=== PATIENT | male | born 1940 | race Caucasian/White ===

== ENCOUNTER 2020-03-28 10:46 | Outpatient (CLI) | payer MEDICARE, SELFPAY ==
--- NOTE | 2020-03-28 10:54 | XR_ITS ---
WS: [id number] PROCEDURE: XR chest 2V* [id number] CLINICAL INFORMATION: MALIGNANT NEOPLASM OF PHARYNX COMPARISON: June 08, 2019 FINDINGS: Heart: Normal cardiac silhouette. Lungs: Moderate chronic emphysematous changes. Volume loss right lung. Small right pleural effusion. Subsegmental atelectasis right lung base. Left lung is well aerated. No new infiltrates. Bones: Chronic right rib fractures with callus formation. Chronic compression L1 vertebral body. XR/XR chest 2V* [id number] IMPRESSION: 1. Moderate chronic emphysematous changes. 2. Volume loss right lung with small right pleural effusion. Subsegmental atel ectasis right lung base. 3. No new infiltrates.
== END 2020-03-28 10:47 | disposition home or self-care (01) ==
LOC: RADWPI 10:52
PROVIDERS: Family Provider Family Medicine; PCP Family Medicine; Visit Provider Nurse Practitioner Family
DX: C14.0 Malignant neoplasm of pharynx, unspecified (principal); J90 Pleural effusion, not elsewhere classified; J98.11 Atelectasis
CPT/HCPCS: 71046

== ENCOUNTER 2020-05-02 12:42 | Outpatient (CLI) | payer MEDICARE, SELFPAY ==
--- NOTE | 2020-05-02 13:00 | CT_ITS ---
WS: [id number] CT CHEST WITH INTRAVENOUS CONTRAST HISTORY: INTERSTITIAL PULMONARY DISEASE TECHNIQUE: Contiguous 5 mm axial imaging performed on the thorax. Coronal and sagittal reformats are submitted. All CT scans at [facility] use at least one of these dose optimization techniq ues: automated exposure control; mA and/or kV adjustment per patient size (includes targeted exams wh ere dose is matched to clinical indication); or iterative reconstruction. CONTRAST: Visipaque 320; 95 mL IV. DLP: 797.6 mGycm COMPARISON: 09/07/2015 and 02/23/2011 Lungs and central airway: Mild volume loss in the RIGHT thorax. Previously described areas of atelect asis have significantly improved. There is a small groundglass nodule in the superior RIGHT lower lob e measuring 10 mm. There is an additional groundglass nodule measuring 8 mm in the superior LEFT lowe r lobe. Mild pleural thickening involving the fissures on the RIGHT and some subsegmental areas of at electasis and scar. Peripheral interstitial thickening at the RIGHT lung base. No suspicious nodule o r pneumonia. Pleura: Normal. No pleural effusion. Heart and pericardium: Normal size heart. No pericardial effusion. Mediastinum and tyler: Calcified subcarinal lymph nodes. No adenopathy. Vessels: Moderate atherosclerosis of the aorta. Very mild narrowing of the proximal LEFT subclavian a rtery. Scattered coronary artery calcifications. Chest wall and lower neck: No soft tissue masses. Upper abdomen: Atherosclerosis continues into the suprarenal aorta. Scattered granulomata in the sple en. No adrenal mass. Prior cholecystectomy. Osseous structures: Severe, remote vertebral plana fracture of L1. Deformity of the RIGHT thorax due to prior healed rib fractures. CT/CT chest w con* [id number] IMPRESSION: 1. Much improved aeration throughout both lungs as compared to 09/07/2015. 2. Mild pleural thickening and scarring in the RIGHT lung. 3. Mild changes of early honeycombing at the RIGHT lung base. 4. Bilateral areas of groundglass attenuation. These are within the lower lobe s bilaterally. Recommend follow-up chest CT in one year. 5. Atherosclerosis aorta. 6. Prior cholecystectomy.
[2020-05-02] MEDS: iodixanol 320 mg/mL 100mL Btl IV (13:48)
== END 2020-05-02 12:43 | disposition home or self-care (01) ==
LOC: RADWPI 12:46
PROVIDERS: Family Provider Family Medicine; PCP Family Medicine; Visit Provider Nurse Practitioner Family
DX: J84.9 Interstitial pulmonary disease, unspecified (principal); E87.1 Hypo-osmolality and hyponatremia; I70.0 Atherosclerosis of aorta; Z90.49 Acquired absence of other specified parts of digestive tract
CPT/HCPCS: 71260; Q9967

== ENCOUNTER 2021-05-15 10:29 | Outpatient (CLI) | payer MEDICARE, SELFPAY ==
--- NOTE | 2021-05-15 10:37 | CT_ITS ---
WS: [id number] CT CHEST WITH INTRAVENOUS CONTRAST HISTORY: Interstitial pulmonary disease. TECHNIQUE: Contiguous 5 mm axial imaging performed on the thorax. Coronal and sagittal reformats are submitted. All CT scans at [facility] use at least one of these dose optimization techniq ues: automated exposure control; mA and/or kV adjustment per patient size (includes targeted exams wh ere dose is matched to clinical indication); or iterative reconstruction. CONTRAST: Omnipaque 300; 95 mL IV. DLP: 826.31 mGycm COMPARISON: 05/02/2020 and 09/07/2015 Lungs and central airway: 2 mm nodule in the RIGHT upper lobe, image 9 of series 3 is stable. Bilater al areas of groundglass attenuation are again identified. 8mm groundglass attenuation may be linear s carring is seen on the lateral projection. Very similar in appearance to the prior examination. Inter stitial thickening and fibrosis in the periphery at the RIGHT lung base. There is a additional area o f groundglass attenuation in the LEFT lower lobe abutting the superior fissure which is also stable m easuring 9 mm. Pleura: Very mild pleural thickening in the mid and lower RIGHT thorax. Heart and pericardium: Moderate enlargement of the RIGHT heart chambers. Mediastinum and tyler: No adenopathy. Benign calcified subcarinal lymph nodes. Vessels: Moderate atherosclerosis aorta. Pulmonary artery size is mildly prominent. Mild coronary art marci atherosclerosis. Chest wall and lower neck: No soft tissue masses. Upper abdomen: Gallbladder is absent. No adrenal mass. Osseous structures: Severe L1 compression deformity. Multiple prior healed RIGHT rib fractures with r ib deformity and chest deformity. CT/CT chest w con* [id number] IMPRESSION: 1. No significant change in appearance of the lungs since 05/02/2020. 2. Subcentimeter groundglass opacifications are reidentified. These will need long-term follow-up to document stability. Low-grade adenocarcinoma may appear similar. Recommend yearly follow-up chest CT evaluations with contrast. If thes e nodules begin to increase in size. CT may be necessary. 3. Pleural thickening with healed RIGHT rib fractures and reticulation in the RIGHT chest are probably all related to prior trauma. 4. Mild RIGHT heart enlargement.
[2021-05-15 11:02] LABS: Blood Urea Nitrogen 11 mg/dL (8-23)
[2021-05-15] MEDS: iohexol 300 mg/mL 100 mL Btl IV (11:07)
== END 2021-05-15 10:30 | disposition home or self-care (01) ==
PROVIDERS: PCP Family Medicine; Visit Provider Nurse Practitioner Family
DX: J84.9 Interstitial pulmonary disease, unspecified (principal); I51.9 Heart disease, unspecified; R91.1 Solitary pulmonary nodule
CPT/HCPCS: 71260; 82565; 84520; Q9967

== ENCOUNTER 2021-10-02 08:05 | Outpatient (CLI) | payer MEDICARE, SELFPAY ==
--- NOTE | 2021-10-02 08:11 | CT_ITS ---
WS: [id number] CT HEAD NONCONTRAST HISTORY: MEMORY LOSS TECHNIQUE: Contiguous axial imaging performed through the brain in 2.5 mm imaging. Bone and soft tiss ue windows. All CT scans at [facility] use at least one of these dose optimization techniques: automated exposure control; mA and/or kV adjustment per patient size (includes targeted exams where dose is matched to clinical indication); or iterative reconstruction. DLP: 993.75 mGycm COMPARISON: 09/07/2015 No acute intracranial hemorrhage, midline shift or mass effect. Mild bilateral cerebral and cerebellar atrophy is symmetric. Low-attenuation periventricular white ma tter from chronic ischemic disease. There has been mild progression of the microvascular ischemic dis ease since 2014. No prior infarct. Ventricles: Normal size with no hydrocephalus. Paranasal sinuses: Mucoperiosteal thickening throughout the ethmoid air cells. No air-fluid levels. Mastoid air cells: Well pneumatized. Small amount of cerumen in the external auditory canals bilatera lly. Calvarium and scalp: Skull is intact with no soft tissue edema or swelling. Mild scattered atherosclerotic plaque in the distal RIGHT vertebral artery and through the intracrani al cavernous carotid arteries. CT/CT head wo con* [id number] IMPRESSION: 1. No acute intracranial hemorrhage or edema. 2. Mild cerebral and cerebellar atrophy without progression. 3. Mild progression of chronic microvascular ischemic disease since 09/07/2015.
== END 2021-10-02 08:06 | disposition home or self-care (01) ==
PROVIDERS: PCP Family Medicine; Visit Provider Nurse Practitioner Family
DX: R41.3 Other amnesia (principal); G31.9 Degenerative disease of nervous system, unspecified; I67.82 Cerebral ischemia
CPT/HCPCS: 70450

== ENCOUNTER → 2021-12-28 10:50 | Outpatient (BNVA) | payer MEDICARE, SELFPAY | PROVIDERS: PCP Family Medicine; Referring Provider Nurse Practitioner Family; Visit Provider Specialist | DX: G30.9 Alzheimer's disease, unspecified (principal); F02.80 Dementia in other diseases classified elsewhere, unspecified severity, without behavioral disturbance, psychotic disturbance, mood disturbance, and anxiety; Z87.891 Personal history of nicotine dependence | CPT/HCPCS: 96116; 99204; 99205 ==

== ENCOUNTER 2021-12-28 15:28 | Outpatient (CLI) | payer MEDICARE, SELFPAY ==
[2021-12-28 16:56] LABS: Vitamin B12 503 pg/mL (232-1245)
== END 2021-12-28 15:29 | disposition home or self-care (01) ==
LOC: LAB 15:35
PROVIDERS: PCP Family Medicine; Visit Provider Specialist
DX: R20.0 Anesthesia of skin (principal); R20.2 Paresthesia of skin
CPT/HCPCS: 82607

== ENCOUNTER → 2022-03-27 13:57 | Outpatient (BNVA) | payer MEDICARE, SELFPAY | PROVIDERS: PCP Family Medicine; Visit Provider Specialist | DX: G30.9 Alzheimer's disease, unspecified (principal); F02.80 Dementia in other diseases classified elsewhere, unspecified severity, without behavioral disturbance, psychotic disturbance, mood disturbance, and anxiety | CPT/HCPCS: 96116; 99213; 99214 ==

== ENCOUNTER 2022-05-21 11:07 | Outpatient (CLI) | payer MEDICARE, SELFPAY | END 2022-05-21 11:08 | disposition home or self-care (01) | LOC: LAB 11:11 | PROVIDERS: PCP Family Medicine; Visit Provider Urology | DX: R97.20 Elevated prostate specific antigen [PSA] (principal); N40.1 Benign prostatic hyperplasia with lower urinary tract symptoms; G30.9 Alzheimer's disease, unspecified; F02.80 Dementia in other diseases classified elsewhere, unspecified severity, without behavioral disturbance, psychotic disturbance, mood disturbance, and anxiety | CPT/HCPCS: 51741; 51798; 81003; 84153; 99203 ==

== ENCOUNTER 2022-07-11 09:36 | Outpatient (CLI) | payer MEDICARE, SELFPAY ==
--- NOTE | 2022-07-11 09:46 | CT_ITS ---
WS: [id number] CT HEAD TECHNIQUE: Noncontrast CT of the head obtained from the skullbase to the vertex. CLINICAL INFORMATION: HYPERTENSION, UNSTABLE BALANCE COMPARISON: October 02, 2021 DLP: 1097.[address] scans at [facility] use at least one of these dose optimization techniques: automated e xposure control; mA and/or kV adjustment per patient size (includes targeted exams where dose is matc hed to clinical indication); or iterative reconstruction. FINDINGS: No evidence of intracranial hemorrhage or mass effect. Ventricular system and basal cisterns are louis nt. Mild small vessel changes with mild parenchymal volume loss. No extra-axial fluid collections. No evidence of mass or mass effect. Intracranial vascular calcification. Mild mucosal thickening with small amount of fluid in the ethmoid air cells. Mastoid air cells are we ll aerated. Normal posterior nasopharynx. CT/CT head wo con* [id number] IMPRESSION: 1. No evidence of intracranial hemorrhage or mass effect. 2. Mild small vessel changes with mild parenchymal volume loss. 3. Mild mucosal thickening in the ethmoid air cells. 4. No acute intracranial findings.
== END 2022-07-11 09:37 | disposition home or self-care (01) ==
LOC: RAD 09:37
PROVIDERS: PCP Nurse Practitioner Family; Visit Provider Nurse Practitioner Family
DX: I10 Essential (primary) hypertension (principal); R26.89 Other abnormalities of gait and mobility
CPT/HCPCS: 70450

== ENCOUNTER → 2022-08-16 12:41 | Outpatient (BNVA) | payer MEDICARE, SELFPAY | PROVIDERS: PCP Nurse Practitioner Family; Visit Provider Specialist | DX: G30.9 Alzheimer's disease, unspecified (principal); F02.80 Dementia in other diseases classified elsewhere, unspecified severity, without behavioral disturbance, psychotic disturbance, mood disturbance, and anxiety; R26.89 Other abnormalities of gait and mobility | CPT/HCPCS: 99213; 99214 ==

== ENCOUNTER 2022-11-20 12:00 | Outpatient (CLI) | payer MEDICARE, SELFPAY ==
[2022-11-20 13:42] LABS: Prostate Specific AG Urology 7.26 ng/mL (0-4)
== END 2022-11-20 12:01 | disposition home or self-care (01) ==
LOC: LAB 12:02
PROVIDERS: PCP Nurse Practitioner Family; Visit Provider Urology
DX: R97.20 Elevated prostate specific antigen [PSA] (principal); N40.1 Benign prostatic hyperplasia with lower urinary tract symptoms; G30.9 Alzheimer's disease, unspecified; F02.80 Dementia in other diseases classified elsewhere, unspecified severity, without behavioral disturbance, psychotic disturbance, mood disturbance, and anxiety
CPT/HCPCS: 36415; 84153; 99213

== ENCOUNTER → 2023-05-16 09:42 | Outpatient (BNVA) | payer MEDICARE, SELFPAY | PROVIDERS: PCP Nurse Practitioner Family; Visit Provider Urology | DX: N40.1 Benign prostatic hyperplasia with lower urinary tract symptoms (principal); R97.20 Elevated prostate specific antigen [PSA]; G30.9 Alzheimer's disease, unspecified; F02.80 Dementia in other diseases classified elsewhere, unspecified severity, without behavioral disturbance, psychotic disturbance, mood disturbance, and anxiety | CPT/HCPCS: 81003; 99213 ==

== ENCOUNTER 2023-07-25 09:55 | Outpatient (CLI) | payer MEDICARE, SELFPAY ==
--- NOTE | 2023-07-25 10:13 | XR_ITS ---
WS: [id number] EXAMINATION: XR chest 2V* [id number] REASON FOR EXAM: CHRONIC COUGH COMPARISON: None available. ORDER DATE: 07/25/2023 10:18 AM FINDINGS: : Normal cardiac silhouette. Lungs: Moderate chronic emphysematous changes. Volume loss right lung. Small right pleural effusion. Subsegmental atelectasis right lung base. There is a vague appearance of a nodule in the la teral left lung not seen on the prior study about 6 mm in diameter with some adjacent stranding.. Bones: Chronic right rib fractures with callus formation. Chronic compression L1 vertebral body. IMPRESSION: 1. Moderate chronic emphysematous changes. 2. Volume loss right lung with small right pleural effusion. Subsegmental atelectasis and pleural thi ckening right lung base. 3. Suspicious new pulmonary nodule lateral mid left lung recommend CT imaging correlation
== END 2023-07-25 09:56 | disposition home or self-care (01) ==
PROVIDERS: PCP Nurse Practitioner Family; Visit Provider Nurse Practitioner Family
DX: R05.3 Chronic cough (principal); J90 Pleural effusion, not elsewhere classified; J98.11 Atelectasis; R91.1 Solitary pulmonary nodule
CPT/HCPCS: 71046

== ENCOUNTER 2023-09-06 08:03 | Outpatient (CLI) | payer MEDICARE, SELFPAY ==
--- NOTE | 2023-09-06 08:15 | CT_ITS ---
WS: [id number] CT chest w con* [id number] HISTORY: SOLITARY PULMONARY NODULE TECHNIQUE: Axial imaging performed through the thorax. Coronal and sagittal reformats are submitted. All CT scans at [facility] use at least one of these dose optimization techniques: automated exposure control; mA and/or kV adjustment per patient size (includes targeted exams where dose is mat ched to clinical indication); or iterative reconstruction. CONTRAST: Omnipaque 350; 100 mL IV. DLP: 314.84 mGy.cm COMPARISON: 05/15/2021 Lungs and central airway: Mild hyperinflation. Increasing size and density of a nodule in the LEFT lo wer lobe now measuring 9 x 9 mm. This nodule is slightly irregular and spiculated. This nodule was pr esent on the prior examination from 2020 but more groundglass attenuation. There is additional area o f groundglass attenuation measuring 8 mm in the RIGHT lower lobe which is stable. 3 mm nodule RIGHT a pex. There is subpleural thickening and scarring on the RIGHT. This is probably postoperative. Pleura: No effusions. Mild pleural thickening on the RIGHT. Heart and pericardium: Moderate cardiomegaly. Mediastinum and tyler: No adenopathy. There are several benign-appearing lymph nodes in the mediastinu m and hilum which contain calcification. Vessels: Moderate atherosclerosis aorta. Mild dilatation of the pulmonary artery. Chest wall and lower neck: No soft tissue masses. Upper abdomen: Suprarenal aortic calcification. Gallbladder is not identified and may have been surgi ryan removed. Osseous structures: Severe chronic compression fracture L1. IMPRESSION: 1. Increasing density and size of the spiculated nodule LEFT lower lobe now measuring 9 x 9 mm. Consi seb PET/CT imaging. This nodule may be too small to accurately characterize by PET/CT imaging. If PET /CT imaging is not performed follow-up chest CT in 3 months is recommended. 2. No mediastinal or hilar adenopathy. 3. Mild cardiomegaly. 4. No mediastinal or hilar adenopathy. 5. Mild groundglass attenuation in the RIGHT lower lobe is stable.
[2023-09-06 08:41] LABS: Blood Urea Nitrogen 12 mg/dL (8-23)
[2023-09-06] MEDS: iohexol 350 mg/mL 500 mL Btl (per mL) IV (08:48)
== END 2023-09-06 08:04 | disposition home or self-care (01) ==
LOC: RAD 08:08
PROVIDERS: PCP Nurse Practitioner Family; Visit Provider Nurse Practitioner Family
DX: R91.1 Solitary pulmonary nodule (principal); I51.7 Cardiomegaly
CPT/HCPCS: 71260; 82565; 84520; Q9967

== ENCOUNTER 2023-10-15 13:51 | Outpatient (CLI) | payer MEDICARE, SELFPAY ==
--- NOTE | 2023-10-15 | PETR_ITS ---
PROCEDURE INFORMATION: Exam: PET/CT Skull Base to Mid-thigh Exam date and time: 10/15/2023 8:49 AM Age: 83 years old Clinical indication: Abnormal findings; Abnormal CT LABS AND CLINICAL REPORTS: Glucose: 86 mg/dl Treatment strategy for malignancy (PET staging): Restaging (PS) TECHNIQUE: Imaging protocol: Following at least four-hour fasting and following the injection of radiopharmaceutical, low dose CT images were obtained. Then, PET images were obtained. Attenuation corrected images were constructed using the CT scan. Fused images of PET and CT were reviewed. The standardized uptake values (SUV) reported below are maximum values within a region of interest, expressed in gm/ml. Exam includes orbital meatal line to mid-thigh. Radiopharmaceutical: 13.09 mCi F-18 FDG (Fluorodeoxyglucose), IV. Time of imaging post radiopharmaceutical administration: 1 hour Injection site: Right AC COMPARISON: CT chest w con* [id number] 09/06/2023 8:43 AM FINDINGS: Brain: Visualized brain has normal physiologic uptake. Pharynx: Increased uptake focally in the right sublingual area with maximum SUV 3.0 on series 3, image [address] with a slightly irregular hyperdensity versus otherwise incompletely characterized without contrast. There are apparent postsurgical changes along the left tongue and pharynx with a few surgical clips in this region. Focal uptake adjacent in this region on series 3, image 40 does not localize to a discrete lymph node. Larynx: No abnormal uptake. Lungs, pleura and trachea: 9 mm left lower lobe lesion in question is seen on series 3 image 99 and does not demonstrate increased uptake with max SUV 0.6. There are adjacent small foci of minimally increased uptake in the right lower lobe within some reticular consolidation which is otherwise unchanged from prior comparison please see series 3, image 112. Heart: Normal physiologic uptake. Mediastinal space: No abnormal uptake. Liver: No abnormal uptake. Gallbladder and bile ducts: No abnormal uptake. Pancreas: No abnormal uptake. Spleen: No abnormal uptake. Adrenal glands: No abnormal uptake. Kidneys and ureters: Normal physiologic uptake. Stomach and bowel: No abnormal uptake. Vasculature: No abnormal uptake. Lymph nodes: No abnormal uptake. No lymphadenopathy in the head, neck, chest, abdomen, pelvis, and extremities. Bones/joints: No abnormal uptake in the visualized axial and appendicular skeleton. Focal uptake kidney right cervical facets likely secondary to the degenerative change. Soft tissues: No abnormal uptake in the visualized head, neck, chest, abdomen, pelvis, and extremities. PET/PET skulltothigh SUBSEQ [id number] IMPRESSION: No abnormal radiotracer uptake associated with the left lower lobe lesion in question which may be secondary to non hypermetabolism or subcentimeter size.. There is minimally increased uptake associated with adjacent small nodular opacities in the right lower lobe area of reticular consolidation which is otherwise unchanged from prior comparison. This may represent underlying infectious/inflammatory process. Focal area of increased pharyngeal uptake in the right sublingual space with contralateral postsurgical changes. Please correlate with past surgical history and recommend dedicated CT neck with contrast.
== END 2023-10-15 13:52 | disposition home or self-care (01) ==
LOC: RAD 13:52
PROVIDERS: PCP Nurse Practitioner Family; Visit Provider Nurse Practitioner Family
DX: R91.1 Solitary pulmonary nodule (principal); R93.89 Abnormal findings on diagnostic imaging of other specified body structures
CPT/HCPCS: 78815; A9552

== ENCOUNTER 2023-11-13 07:51 | Outpatient (CLI) | payer MEDICARE, SELFPAY ==
--- NOTE | 2023-11-13 07:58 | CT_ITS ---
WS: [id number] CT NECK TECHNIQUE: Contrast-enhanced CT of the neck with coronal and sagittal reformatted images. CLINICAL INFORMATION: PERSONAL HX OF MALIGNANT NEOPLASM OF LARYNX COMPARISON: PET/CT 10/15/2023 DLP: 144.[address] scans at [facility] use at least one of these dose optimization techniques: automated e xposure control; mA and/or kV adjustment per patient size (includes targeted exams where dose is matc hed to clinical indication); or iterative reconstruction. FINDINGS: Prior postoperative changes resection of a LEFT tonsillar mass with flap reconstruction. Previously d escribed area of increased FDG activity in the RIGHT sublingual space demonstrates no definite soft t issue abnormalities in this area to indicate recurrent or progressed disease. Recommend continued efe veillance with PET/CT. Normal posterior nasopharynx. Resection of the LEFT submandibular gland. Parotid glands appear normal . Normal parapharyngeal fat. Mild mucosal thickening in the ethmoid air cells. Mastoid air cells are well aerated. Normal glottis and subglottic airway. Atrophic thyroid gland. Aortic calcification. Emp hysematous changes in the lung apices. Exaggeration of the normal cervical lordosis. No cervical lymphadenopathy. IMPRESSION: 1. No evidence of recurrent or residual disease. 2. 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 3. No cervical lymphadenopathy. 4. No abnormalities in the RIGHT sublingual space to correlate with activity seen on the PET/CT. Rec ommend continued surveillance with PET/CT.
[2023-11-13 08:30] LABS: Blood Urea Nitrogen 12 mg/dL (8-23)
[2023-11-13] MEDS: iohexol 350 mg/mL 500 mL Btl (per mL) IV (08:49)
--- NOTE | 2023-11-13 11:16 | FL_ITS ---
WS: [id number] Exam: FL barium swallow modifd [id number] Date/Time of Exam: 11/13/2023 11:34 AM Reason For Exam: Other dysphagia Fluoroscopy time: 2min [id number] minutes # of spot films: Modified barium swallow was performed in conjunction with the speech therapy service. Pudding consistency barium foodstuffs administered first demonstrated immediate penetration and aspir ation into the upper trachea. The patient also demonstrated significant penetration when swallowing t hin liquid barium solution. The exam was terminated due to aspiration. IMPRESSION: 1. Modified barium swallow test positive for significant penetration and aspiration as detailed above . A separate report and recommendations will follow from the speech therapy department.
== END 2023-11-13 07:52 | disposition home or self-care (01) ==
LOC: RAD 07:51
PROVIDERS: PCP Nurse Practitioner Family; Visit Provider Specialist
DX: Z85.21 Personal history of malignant neoplasm of larynx (principal)
CPT/HCPCS: 70491; 74230; 82565; 84520; 92611; Q9967